=== PATIENT | male | born 1995 | race Caucasian/White ===

== ENCOUNTER 2020-01-09 17:03 | Inpatient (IN) | payer SELFPAY ==
[2020-01-09 17:10] VITALS: BP 142/86; PULSE 110; RESP 15; TEMP 36.5; O2SAT 97; BMI 25.7
[2020-01-09 17:21] VITALS: PULSE 78; RESP 16; O2SAT 97
--- NOTE | 2020-01-09 17:31 | ECG_ITS ---
Measurements Intervals [place] Rate: 94 P: 50 GA: 166 QRS: 18 QRSD: 91 T: 68 QT: 346 QTc: 435 SINUS RHYTHM Compared to ECG 05/20/2019 18:14:37 T-wave abnormality no longer present Electronically Signed On 01-10-2020 18:18:01 CDT by Farzana Palacio M.D. [id number]
--- NOTE | 2020-01-09 17:33 | ED_ITS ---
HPI - Anxiety General: Chief Complaint: Anxiety Stated Complaint: ANXIETY Time Seen by Provider: 01/09/20 17:16 History of Present Illness: HPI narrative: Mr. Corona is a 24-year-old male comes in claiming he is suicidal and very anxious. He states his medications are not working like they should. He does not have a specific plan but states that he wants to kill himself. He is requesting go to the [facility] to get help. Associated symptoms: Deny chest pain, chills, confusion, diaphoresis, fever(s), headache(s), malaise, nausea, palpitations, syncope or vomiting Review of Systems General: Reports: other (negative unless marked) Const: Denies: fever, chills, body aches, fatigue, malaise or diaphoresis Eyes: Denies: change in vision or blurry vision ENMT: Denies: throat pain, painful swallowing, hoarseness, ear pain, ear discharge, Change in hearing or nasal discharge Card: Denies: chest pain, palpitations, irregular heart rhythm, syncope, pre- syncope, shortness of breath on exertion or shortness of breath when lying down Resp: Denies: shortness of breath, productive cough, non-productive cough, wheezing, coughing up blood or chest congestion GI: Denies: abdominal pain, nausea, vomiting, vomiting blood, coffee grounds in vomit, diarrhea, constipation, cramping, blood in stool or black tarry stool : Denies: flank pain, difficulty urinating, painful urination, urinary frequency, urinary urgency, decreased urine ouput, urinary incontinence or blood in urine Musc: Denies: neck pain, back pain, extremity pain, extremity swelling, joint pain, joint swelling, joint warmth or joint stiffness Skin/Breast: Denies: rash, skin tenderness or yellow skin Neuro: Denies: headache, numbness in extremities, weakness in extremities, changes in sensation, lack of coordination, difficulty walking, dizziness, vertigo or confusion Psych: Reports: anxiety and depression Endo: Denies: excessive thirst, tired all the time, cold intolerance, excessive sweating, flushing or hot flashes Nas/Lymph: Denies: easy bruising, easy bleeding, petechiae or enlarged lymph nodes All/Imm: Denies: hives, throat swelling, tongue swelling, facial swelling or acute wheezing PFSH ED PFSH: Social History Smoking and tobacco status: current every day smoker Physical Exam Const: COMMON NORMALS: no apparent distress, oriented x3, no limitations, healthy appearing and well nourished EXAM LIMITATIONS: no altered mental status GENERAL APPEARANCE: cooperative, well kempt and well developed ORIENTATION/CONSCIOUSNESS: Yes awake HENMT: COMMON NORMALS: normocephalic, head/scalp atraumatic, hearing grossly normal bilaterally, external ears normal, EAC's normal, external nose normal and moist oral mucous membranes HEAD & SCALP: normal to inspection, normocephalic and atraumatic FACE & SINUS: normal facial exam and face symmetric NOSE: external nose normal and nares normal EXTERNAL EAR: Yes external ears normal EXTERNAL AUDITORY CANAL: EAC's normal MOUTH: oral and palatal mucosa normal and tongue normal Eye: COMMON NORMALS: PERRL, EOMs intact bilaterally, conjunctivae normal and no scleral icterus GENERAL EYE: normal appearance of both eyes and normal light reflex CONJUNCTIVA: Yes conjunctivae normal SCLERA: sclerae normal CORNEA: Yes corneas normal PUPIL: Yes PERRL DIRECT OPHTHALMOSCOPY: Yes normal light reflex Neck/C-Spine: COMMON NORMALS: full ROM, no lymphadenopathy, supple, no meningeal signs and no JVD GENERAL: Yes normal visual inspection and Yes trachea midline CERVICAL SPINE: Yes cervical ROM normal Chest: COMMONS NORMALS: inspection of chest normal and palpation of chest normal Resp: COMMON NORMALS: normal respiratory effort, no retractions, no use of accessory muscles and clear to auscultation bilaterally EFFORT & INSPECTION: Yes able to speak in complete sentences AUSCULTATION: clear to auscultation bilaterally Cardio: COMMON NORMALS: no JVD, regular rate, regular rhythm, S1 normal heart sound, S2 normal heart sound, no gallops, no clicks, no murmurs and no rub JUGULAR VENOUS DISTENTION: no JVD RATE: regular rate RHYTHM: regular rhythm HEART SOUNDS: S1 normal and S2 normal GI: COMMON NORMALS: soft to palpation, non-tender, no hepatosplenomegaly and no masses INSPECTION: Yes normal to inspection PALPATION: Yes soft and Yes no hepatosplenomegaly : COMMON NORMALS: Yes no CVA tenderness BLADDER/KIDNEY EXAM: Yes no CVA tenderness Back/Pelvis: COMMON NORMALS: no CVA tenderness, thoracic and lumbar spine normal to inspection, no thoracic nor lumbar tenderness and thoraco-lumbar ROM normal Extremity: COMMON NORMALS: normal to inspection, full ROM, normal capillary refill, no joint enlargement, no clubbing, cyanosis or edema and no calf tenderness Neuro: COMMON NORMALS: oriented x3, CN's II-XII intact bilaterally, moves all extremities, no focal motor deficits and no sensory deficits noted MENINGEAL SIGNS: Yes no meningeal signs Psych: COMMON NORMALS: mental status grossly normal, thought process normal, cooperative, affect normal, speech normal and activity/motor behavior normal APPEARANCE: Yes well kempt SPEECH: Yes normal speech THOUGHT PROCESS: normal thought process Skin: COMMON NORMALS: no rashes or lesions noted, skin turgor normal, no jaundice, no petechiae and no mottling GENERAL SKIN EXAM: no rashes or lesions noted and turgor normal Course Vital Signs: Vital signs: Vital Signs Temperature 97.7 F 01/09/20 17:10 Pulse Rate 78 01/09/20 18:48 Respiratory Rate 16 01/09/20 18:48 Blood Pressure 142/86 01/09/20 17:10 Pulse Oximetry 99 01/09/20 18:48 MDM - Anxiety MDM Narrative: Medical decision making narrative: Case reviewed with Dr. Puentes, he agrees accept the patient to the [facility]. EKG Data^: EKG 1: Attestation: I personally reviewed and interpreted this EKG as follows: EKG interpretation date: 01/09/20 EKG interpretation time: 18:50 Interpretation: Normal sinus rhythm at 94 beats a minute, no blocks, normal axis. Lab Data: Labs: Lab Results 01/09/20 01/09/20 01/09/20 Range/Units 17:40 17:40 17:40 WBC 6.3 (4.0-10.0) 10^3/ uL RBC 4.68 (4.1-5.3) 10^6/u L Hgb 13.9 (11.7-16.6) g/dL Hct 42.3 (42.0-52.0) % MCV 90.4 (80-94) fL MCH 29.7 (28.0-34.0) pg MCHC 32.9 (30.0-36.0) g/dL RDW 12.0 L (12.1-15.1) % Plt Count 284 (130-400) 10^3/c mm MPV 10.0 (7.4-10.4) fL Neut % (Auto) 64.2 % Lymph % (Auto) 26.7 % Terry % (Auto) 6.6 % Eos % (Auto) 1.7 % Baso % (Auto) 0.5 % Neut # (Auto) 4.1 (1.8-7.7) 10^3/u L Lymph # (Auto) 1.7 (0.8-4.8) 10^3/u L Terry # (Auto) 0.4 (0.2-0.9) 10^3/u L Eos # (Auto) 0.1 (0.0-0.8) 10^3/u L Baso # (Auto) 0.0 (0.0-0.1) 10^3/u L Nucleated RBC % (a uto) 0 % Nucleated RBCs # 0.0 /100WBC Sodium 144 (136-145) mmol/L Potassium 3.7 (3.5-5.1) mmol/L Chloride 105 (98-107) mmol/L Carbon Dioxide 24 (22-29) mmol/L Anion Gap 18.7 (5-19) BUN 8 (6-20) mg/dL Creatinine 0.9 (0.7-1.2) mg/dL GFR Calculation 104.6 (90-130) mL/min Glucose 127 H (65-115) mg/dL Calculated Osmolal ity 295 (285-295) mOsm/k g Calcium 9.2 (8.5-10.5) mg/dL Total Bilirubin 0.2 (0.15-1.2) mg/dL AST 15 (0-40) U/L ALT 16 (0-41) U/L Alkaline Phosphata se 98 (40-130) IU/L Total Protein 6.5 L (6.6-8.7) g/dL Albumin 4.0 (3.5-5.2) g/dL Globulin 2.5 (1.3-4.6) g/dL TSH 0.48 (0.27-4.20) uIU/ mL Salicylates < 0.3 L (3-10) mg/dL Acetaminophen < 5.0 L (10-30) ug/mL Phenytoin 0.8 L (10-20) ug/mL Valproic Acid 2.8 L (50-100) mcg/mL Carbamazepine 2.0 L (4.0-12.0) ug/mL [place] 0.1 L (0.6-1.2) mmol/L Ethyl Alcohol 108 H (0-10) mg/dL Discharge Plan Discharge Patient Disposition: Admitted As Inpatient Admit Provider: Kenneth Puentes Coding Level of Care Code ED Police Chief for g Fwd Exam Comprehensive
[2020-01-09 17:46] LABS: Basophils % 0.5 %; Eosinophils # 0.1 10^3/uL (0.0-0.8); Eosinophils % 1.7 %; Hematocrit 42.3 % (42.0-52.0); Hemoglobin 13.9 g/dL (11.7-16.6); Lymphocytes # 1.7 10^3/uL (0.8-4.8); Lymphocytes % 26.7 %; Mean Corpuscular HGB Conc 32.9 g/dL (30.0-36.0); Mean Corpuscular Hemoglobin 29.7 pg (28.0-34.0); Mean Corpuscular Volume 90.4 fL (80-94); Monocytes # 0.4 10^3/uL (0.2-0.9); Monocytes % 6.6 %; Neutrophils # 4.1 10^3/uL (1.8-7.7); Neutrophils % 64.2 %; Nucleated Red Blood Cells % 0 %; Platelet Count 284 10^3/cmm (130-400); Red Blood Count 4.68 10^6/uL (4.1-5.3); White Blood Count 6.3 10^3/uL (4.0-10.0)
[2020-01-09 18:06] LABS: Lithium 0.1 mmol/L (0.6-1.2)
[2020-01-09 18:14] LABS: Alanine Aminotransferase 16 U/L (0-41); Alcohol Level 108 mg/dL (0-10); Alkaline Phosphatase 98 IU/L (40-130); Anion Gap 18.7 (5-19); Aspartate Amino Transferase 15 U/L (0-40); Blood Urea Nitrogen 8 mg/dL (6-20); Calcium 9.2 mg/dL (8.5-10.5); Carbon Dioxide 24 mmol/L (22-29); Chloride 105 mmol/L (98-107); Globulin 2.5 g/dL (1.3-4.6); Glomerular Filtration Rate 104.6 mL/min (90-130); Glucose 127 mg/dL (65-115); Osmolality Calculated 295 mOsm/kg (285-295); Phenytoin Dilantin 0.8 ug/mL (10-20); Potassium 3.7 mmol/L (3.5-5.1); Sodium 144 mmol/L (136-145); Thyroid Stimulating Hormone 0.48 uIU/mL (0.27-4.20); Total Bilirubin 0.2 mg/dL (0.15-1.2); Total Protein 6.5 g/dL (6.6-8.7); Valproic Acid Level 2.8 mcg/mL (50-100)
[2020-01-09 18:19] LABS: Acetaminophen < 5.0 ug/mL (10-30); Salicylate < 0.3 mg/dL (3-10)
[2020-01-09 18:48] VITALS: PULSE 78; RESP 16; O2SAT 99
--- NOTE | 2020-01-09 19:29 | PC.NURSE ---
psych department requested that we hold pt until 1999 due to shift change and they just got another admit and are processing there new admit.
[2020-01-09 20:12] LABS: Amphetamines Screen Urine Positive (Negative); Barbiturates Screen Urine Negative (Negative); Benzodiazepines Screen Urine Negative (Negative); Cocaine Screen Urine Negative (Negative); Opiate Screen Urine Negative (Negative); PCP Screen Urine Negative (Negative); THC Screen Urine Positive (Negative)
[2020-01-09 21:15] VITALS: BP 123/83; PULSE 98; RESP 20; TEMP 36.7
[2020-01-09] MEDS: trazodone 50 mg Tablet PO (21:25)
--- NOTE | 2020-01-09 21:30 | PC.NURSE ---
PT GIVEN PRN TRAZODONE AT THIS TIME.
--- NOTE | 2020-01-10 01:47 | PC.ADMIT ---
[id number] Admission Note: The patient,Jared Montano,24 y/o, was given written information regarding hospital policies, unit procedures and contact persons. Patient's smoking status: current every day smoker. Vital Signs - 8 hr 01/09/20 18:48 01/09/20 21:15 Temperature 98.0 F Pulse Rate 78 98 Respiratory Rate 16 20 H Blood Pressure 123/83 Pulse Oximetry 99 24 y/o WM admitted to NPU from the ED. Was picked up by EMS, c/o severe anxiety, Hx of PTSD, aspergers. reports he stopped taking his psych meds a week or two ago , unable to recall name and dosages. Patient reports he has increased anxiety and depression, and recent SI. denies HI, denies AVH. Patient states his ex GF delivered his first child, (Daughter) 2 days ago. Expresses feeling overwhelmed. Denies SI/HI/Denies AVH. cooperative with admission. Continue to monitor. BAL/DOA neg.
[2020-01-10 06:00] VITALS: BP 127/81; PULSE 80; RESP 20; TEMP 36.7; O2SAT 96
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
[2020-01-10] MEDS: hyDROXYzine 25 mg Capsule 50 MG PO (12:56)
--- NOTE | 2020-01-10 12:58 | PC.NURSE ---
PRN VISTARIL VISTARIL 50 MG PO PER PATIENT C/O ANXIETY. WILL CONTINUE TO MONITOR FOR MEDICATION EFFECTIVENESS.
[2020-01-10 13:10] VITALS: BP 137/88; PULSE 78; RESP 20; TEMP 36.7; O2SAT 96
--- NOTE | 2020-01-10 14:00 | PC.NURSE ---
PRN VISTARIL FOLLOW UP MEDICATION EFFECTIVE, NO FURTHER C/O ANXIETY. PATIENT HAS BEEN IN GROUP.
[2020-01-10] MEDS: OLANZapine ODT 5 MG TABLET PO (14:34)
--- NOTE | 2020-01-10 14:35 | PC.NURSE ---
PRN ZYPREXA ZYDIS ZYPREXA ZYDIS 5MG PO PER PATIENT C/O AGITATION/ANXIETY. PATIENT IS PACING. WILL CONTINUE TO MONITOR FOR MEDICATION EFFECTIVENESS.
--- NOTE | 2020-01-10 15:40 | PC.NURSE ---
PRN ZYPREXA ZYDIS FOLLOW UP MEDICATION EFFECTIVE. PATIENT IS LYING IN BED RESTING, RESPIRATIONS EVEN AND UNLABORED.
[2020-01-10] MEDS: trazodone 50 mg Tablet PO (20:48)
--- NOTE | 2020-01-10 20:48 | PC.NURSE ---
PRN TRAZODONE GIVEN AT THIS TIME.
[2020-01-10 21:51] VITALS: BP 126/90; PULSE 20; RESP 20; TEMP 36.7; O2SAT 96
[2020-01-11 06:00] VITALS: BP 121/77; PULSE 83; RESP 18; TEMP 36.6; O2SAT 98
[2020-01-11] MEDS: ARIPiprazole 10 mg Tablet PO (09:00)
[2020-01-11] MEDS: OLANZapine ODT 5 MG TABLET PO ×2 (09:38→18:00)
--- NOTE | 2020-01-11 09:39 | PC.NURSE ---
PATIENT APPROACHED NURSES STATION C/O ANXIETY. ZYPREXA ZYDIS 5MG ADMINISTERED. WILL MONITOR FOR DRUG EFFECTIVENESS
[2020-01-11] MEDS: nicotine 21 mg Patch 1 PATCH TRANSDERMA (10:46)
--- NOTE | 2020-01-11 13:05 | P.PN_ITS ---
Subjective NPU Subjective: Interval history: Ehsan presents today reporting that his grandmother and he is hoping to be present for the services. He said that the medications are helping though he does believe that he would do better at a higher dose. We discussed the risks benefits and alternatives of increasing the Abilify and he understood and agreed to proceed in this note. Mental Status Exam MSE Comments: This is a well-nourished, well-developed, white male, with adequate dress, grooming, and eye contact. No abnormal movements except for mild psychomotor retardation. Cooperative with exam in no acute distress. Speech was slightly decreased rate and volume. Mood described as okay; less affect subdued and somewhat odd. Thought process, organized. Thought content: patient denied any suicidal or homicidal ideation, there were no delusions reported or noted, patient denied any auditory or visual hallucinations. Attention, concentration, and memory appear intact but were not formally tested. He is alert and oriented times three. Insight and judgment are limited, but improving. Vitals/I&O/Wt Last Vital Signs temperature 97.8, pulse 83, respirations 18, pulse ox 98%, blood pressure 121/77. Home Medications No Known Home Medications 01/09/20 [History Confirmed 01/09/20] Active Medications Acetaminophen (Tylenol) 650 mg PO Q4H PRN PRN Reason: MILD PAIN Aripiprazole (Abilify) 15 mg PO DAILY RADHA Last Admin: 01/11/20 08:06 Dose: 15 mg Documented by: Benztropine Mesylate (Cogentin) 1 mg PO BID PRN PRN Reason: Mild Extrapyramidal symptoms Camphor/Menthol/Phenol (Blistex) 1 applic TOPICAL Q1H PRN PRN Reason: DRYNESS Diphenhydramine HCl (Benadryl) 50 mg IM ONCE PRN PRN Reason: Severe Extrapyramidal Symptoms Diphenhydramine HCl (Benadryl) 50 mg IM Q4H PRN PRN Reason: Severe Aggression Hydroxyzine Pamoate (Vistaril) 50 mg PO Q6H PRN PRN Reason: ANXIETY Last Admin: 01/12/20 10:45 Dose: 50 mg Documented by: Loperamide HCl (Imodium Capsule) 2 mg PO Q6H PRN PRN Reason: DIARRHEA Lorazepam (Ativan) 2 mg IM Q4H PRN PRN Reason: Severe Aggression Nicotine (Nicoderm 21 Mg Patch) 1 patch TRANSDERMA DAILY PRN PRN Reason: NICOTINE WITHDRAWAL Last Admin: 01/11/20 10:46 Dose: 1 patch Documented by: Nicotine Polacrilex (Nicorette) 2 mg BUCCAL Q2H PRN PRN Reason: NICOTINE WITHDRAWAL Olanzapine (Zyprexa Zydis) 5 mg PO Q4H PRN PRN Reason: Agitation/Psychosis Last Admin: 01/11/20 18:00 Dose: 5 mg Documented by: Ondansetron HCl (Zofran) 4 mg PO Q6H PRN PRN Reason: NAUSEA AND VOMITING Propranolol HCl (Inderal) 20 mg PO TID RADHA Last Admin: 01/12/20 08:05 Dose: 20 mg Documented by: Data NPU : 01/09/20 17:40 01/09/20 17:40 A&P Additional A&P Information (1) Opiate addiction: This is a 24 year old, white male, with a history of possible autistic spectrum disorder, and depression, as well as opiate and methamphetamine addiction, who presents reporting that he is struggling with psychosis and being off of medication. Continue current medication except: Increase Abilify 15 mg po qam. Encourage individual, group, and milieu therapy. Continue q 15-minute checks for safety. Plan for discharge to the highest level of sober living treatment to which he is willing to commit. (2) Methamphetamine dependence: (3) Psychosis: Involuntary Hold Information 96 Hour Hold: 96 Hour Involuntary Admission: No Attestations NPU Medical Necessity Statement*: Inpatient hospitalization is medically necessary and the clinically appropriate intervention at this time. We will monitor and adjust medications as indicated. Likely length of stay 1-3 days. Tentative discharge tomorrow. Coding Level of Care Code Acute Ditching Machine Engineer for Hyun Thompson
[2020-01-11 14:00] VITALS: BP 113/67; PULSE 80; RESP 20; TEMP 36.7
[2020-01-11] MEDS: hyDROXYzine 25 mg Capsule 50 MG PO (14:23)
--- NOTE | 2020-01-11 14:23 | PC.NURSE ---
PRN VISTARIL VISTARIL 50MG PO PER PATIENT C/O ANXIETY. WILL CONTINUE TO MONITOR FOR MEDICATION EFFECTIVENESS.
--- NOTE | 2020-01-11 15:30 | PC.NURSE ---
PRN VISTARIL FOLLOW UP MEDICATION EFFECTIVE. NO FURTHER C/O ANXIETY.
[2020-01-11] MEDS: propranolol 20 mg Tablet PO ×2 (16:02→19:41)
[2020-01-11] MEDS: ARIPiprazole 10 mg Tablet 5 MG PO (16:02)
--- NOTE | 2020-01-11 18:00 | PC.NURSE ---
Addendum entered by Lisa Cox LPN 01/11/20 18:52: MEDICATION EFFECTIVE. NO FURTHER C/O ANXIETY. PATIENT IS LYING IN BED RESTING. Original Note: PRN ZYPREXA ZYDIS ZYPREXA ZYDIS 5MG PO PER PATIENT C/O ANXIETY/AGITATION. WILL CONTINUE TO MONITOR FOR MEDICATION EFFECTIVENESS.
[2020-01-11 20:38] VITALS: BP 125/85; PULSE 90; RESP 19; TEMP 36.5; O2SAT 96
--- NOTE | 2020-01-11 21:11 | PC.NURSE ---
Pt given scheduled Propranolol at 1940 per pt request.
[2020-01-12 06:00] VITALS: BP 116/76; PULSE 64; RESP 16; TEMP 36.6; O2SAT 98
[2020-01-12] MEDS: propranolol 20 mg Tablet PO ×2 (08:05→14:33)
[2020-01-12] MEDS: ARIPiprazole 10 mg Tablet PO (08:05)
[2020-01-12] MEDS: ARIPiprazole 30 mg Tablet 15 MG PO (08:06)
[2020-01-12] MEDS: hyDROXYzine 25 mg Capsule 50 MG PO (10:45)
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
[2020-01-12 13:40] VITALS: BP 116/76; PULSE 64; RESP 16; TEMP 36.6; O2SAT 98
[2020-01-12] MEDS: nicotine 2 mg Gum BUCCAL (14:35)
== END 2020-01-12 14:48 | disposition home or self-care (01) | DRG 885 ==
LOC: ER 17:47 → NP 18:25
PROVIDERS: Admitting Provider Psychiatry & Neurology Psychiatry; Emergency Provider Emergency Medicine; Visit Provider Psychiatry & Neurology Psychiatry
DX: F23 Brief psychotic disorder (principal); F11.20 Opioid dependence, uncomplicated; F15.20 Other stimulant dependence, uncomplicated; R45.851 Suicidal ideations; F17.210 Nicotine dependence, cigarettes, uncomplicated; F41.8 Other specified anxiety disorders; F43.12 Post-traumatic stress disorder, chronic; F12.20 Cannabis dependence, uncomplicated; Z81.8 Family history of other mental and behavioral disorders
CPT/HCPCS: 12345; 36415; 80053; 80156; 80164; 80178; 80185; 80306; 80307; 84443; 85025; 93005; 99284